=== PATIENT | male | born 1960 | race Caucasian/White ===

== ENCOUNTER → 2019-04-28 09:59 | Outpatient (BNVA) | payer MEDICARE, MEDICAID, SELFPAY | PROVIDERS: Family Provider Family Medicine; PCP Family Medicine; Visit Provider Family Medicine | DX: I10 Essential (primary) hypertension (principal); E11.9 Type 2 diabetes mellitus without complications; Z79.4 Long term (current) use of insulin; R39.9 Unspecified symptoms and signs involving the genitourinary system; B35.4 Tinea corporis | CPT/HCPCS: 80053; 80061; 81003; 82044; 83036; 85025; 87077; 87086; 87186 ==

== ENCOUNTER → 2019-05-04 11:09 | Outpatient (BNVA) | payer MEDICARE, MEDICAID, SELFPAY | PROVIDERS: Family Provider Family Medicine; PCP Family Medicine; Visit Provider Family Medicine | DX: N28.9 Disorder of kidney and ureter, unspecified (principal) | CPT/HCPCS: 82043 ==

== ENCOUNTER 2019-05-29 14:38 | Outpatient (CLI) | payer MEDICARE, MEDICAID, SELFPAY ==
--- NOTE | 2019-05-29 15:00 | US_ITS ---
WS: [id number] RENAL ULTRASOUND HISTORY: elevated 24hr urine COMPARISON: None available. TECHNIQUE: 2-D and color Doppler imaging of the kidney submitted. Right kidney: 11.5 cm x 6.4 cm x 5.9 cm. Normal echogenicity with no hydronephrosis or mass. Left kidney: 10.8 cm x 5.3 cm x 5.3 cm. Normal echogenicity with no hydronephrosis or mass. Aorta: Poorly visualized. Urinary Bladder: Normal distention. US/US renal BI* [id number] IMPRESSION: Normal renal ultrasound.
== END 2019-05-29 14:39 | disposition home or self-care (01) ==
LOC: RADWPI 14:43
PROVIDERS: Family Provider Family Medicine; PCP Family Medicine; Visit Provider Family Medicine
DX: R80.9 Proteinuria, unspecified (principal)
CPT/HCPCS: 76770

== ENCOUNTER → 2019-11-29 12:40 | Outpatient (BNVA) | payer OTHER, MEDICARE, MEDICAID, SELFPAY | PROVIDERS: Family Provider Family Medicine; PCP Family Medicine; Visit Provider Specialist | DX: R56.9 Unspecified convulsions (principal); R25.9 Unspecified abnormal involuntary movements | CPT/HCPCS: 95816 ==

== ENCOUNTER 2020-01-09 20:00 | Outpatient (CLI) | payer OTHER, MEDICARE, MEDICAID, SELFPAY | END 2020-01-09 20:01 | disposition home or self-care (01) | LOC: SLEEP 01-10 09:57 | PROVIDERS: Family Provider Family Medicine; PCP Family Medicine; Visit Provider Psychiatry & Neurology Psychiatry | DX: G47.33 Obstructive sleep apnea (adult) (pediatric) (principal) | CPT/HCPCS: 95811 ==

== ENCOUNTER → 2020-01-23 14:33 | Outpatient (BNVA) | payer MEDICARE, MEDICAID, SELFPAY | PROVIDERS: Family Provider Family Medicine; PCP Family Medicine; Visit Provider Family Medicine | DX: E11.9 Type 2 diabetes mellitus without complications (principal); Z79.4 Long term (current) use of insulin | CPT/HCPCS: 80053; 83036 ==

== ENCOUNTER → 2020-08-27 09:42 | Outpatient (BNVA) | payer MEDICARE, SELFPAY | PROVIDERS: Family Provider Family Medicine; PCP Family Medicine; Visit Provider Family Medicine | DX: E11.9 Type 2 diabetes mellitus without complications (principal); Z79.4 Long term (current) use of insulin; I10 Essential (primary) hypertension; E78.5 Hyperlipidemia, unspecified; F17.229 Nicotine dependence, chewing tobacco, with unspecified nicotine-induced disorders | CPT/HCPCS: 80053; 80061; 83036 ==

== ENCOUNTER → 2021-02-25 09:57 | Outpatient (BNVA) | payer MEDICARE, SELFPAY | PROVIDERS: Family Provider Family Medicine; PCP Family Medicine; Visit Provider Family Medicine | DX: R35.1 Nocturia (principal); E11.9 Type 2 diabetes mellitus without complications; Z79.4 Long term (current) use of insulin | CPT/HCPCS: 80053; 83036; 84153 ==

== ENCOUNTER 2022-04-10 11:45 | Emergency (ER) | payer OTHER, SELFPAY ==
[2022-04-10 11:48] VITALS: BP 141/91; PULSE 110; RESP 20; TEMP 35.9; O2SAT 91; BMI 39.0
--- NOTE | 2022-04-10 11:53 | ED_ITS ---
HPI - General Adult General: Chief complaint: General Medical Stated complaint: poss stroke symptoms Time Seen by Provider: 04/10/22 11:48 History of Present Illness: 61-year-old gentleman with history of hypertension, hyperlipidemia, seizures, diabetes presenting to the emergency dep artment for strokelike symptoms. He reports onset of symptoms approximately 5 days ago when he noticed left-sided facial droop and eye tearing as well as difficulty speaking and drinking. Since onset symptoms have persisted. Denies similar episodes in the past. No other neurologic symptoms that he has noticed. Does endorse a headache which is atypical for him frontal and aching/throbbing in nature. No other specific changes in health, exacerbating, or alleviating factors identified. Onset (ago): day(s) Location: face Severity: severe Pain Consistency: constant Relieving factors: none Exacerbating factors: none Associated symptoms: Reports headache(s) Review of Systems General: Reports: 10 or more systems reviewed and unremarkable except in HPI and below Neuro: Reports: headache(s) PFSH ED PFSH: Medical History Allergic rhinitis Anxiety Dyslipidemia Essential hypertension Major depression PTSD (post-traumatic stress disorder) Type 2 diabetes mellitus without complication, with long-term current use of insulin Surgical History No pertinent past surgical history Family History Other CAD (coronary artery disease) Cancer Diabetes Social History Smoking and tobacco status: never smoked (smokeless tobacco usage) Quit status (tobacco): not considering quitting Alcohol intake: former Physical Exam Const: COMMON NORMALS: alert GENERAL APPEARANCE: cooperative and well developed HENMT: COMMON NORMALS: normocephalic, atraumatic, external ears normal, EAC's normal, TM's normal bilaterally and oropharynx normal HEAD & SCALP: normocephalic and atraumatic EXTERNAL EAR: Yes external ears normal EXTERNAL AUDITORY CANAL: EAC's normal TYMPANIC MEMBRANE: TM's normal bilaterally THROAT: posterior oropharynx normal Eye: COMMON NORMALS: conjunctivae normal CONJUNCTIVA: Yes conjunctivae normal SCLERA: sclerae normal Neck/C-Spine: COMMON NORMALS: supple GENERAL: Yes trachea midline Resp: COMMON NORMALS: normal respiratory effort EFFORT & INSPECTION: Yes able to speak in complete sentences Cardio: COMMON NORMALS: regular rate and regular rhythm RATE: regular rate RHYTHM: regular rhythm GI: COMMON NORMALS: Soft to palpation PALPATION: Yes Soft to palpation and No Tenderness to palpation present (GI) PERCUSSION: normal to percussion Extremity: GENERAL: Yes normal exam except as noted and No edema Neuro: COMMON NORMALS: moves all extremities SENSORIUM/ORIENTATION: Yes alert and No Orientation impaired OTHER: Left-sided facial droop and incomplete closure of the inferior left eyelid. There is tearing, forehead is involved however there is some movement. Psych: COMMON NORMALS: mental status grossly normal and Normal thought process present THOUGHT PROCESS: Normal thought process present Skin: NARRATIVE SKIN EXAM: No vesicular lesions Course Vital Signs: Vital signs: Vital Signs Temperature 96.6 F L 04/10/22 11:48 Pulse Rate 89 04/10/22 14:02 Respiratory Rate 14 04/10/22 12:40 Blood Pressure 115/80 04/10/22 14:02 Pulse Oximetry 95 04/10/22 14:02 Oxygen Delivery Me thod 04/10/22 13:00 [facility] - General Adult Medical Decision Making 61-year-old gentleman presenting for droop without other neurologic symptoms. Onset of symptoms 5 days ago and patient is well outside any tPA window. Exam with forehead involved left-sided facial droop with tearing. Exam however is not 100% typical of Degroot's palsy. No skin lesions. Given age and exam further assessment is appropriate. Labs with minimal leukocytosis, no significant metabolic abnormalities. CT without acute evidence of stroke. Patient given medication for headache which resolved headache. 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 Plan to treat with steroids and eyedrops. The results of ED evaluation were discussed with the patient including prescriptions and/or symptomatic cares (if applicable) including appropriate and responsible use, followup plan, and return precautions. The patient verbalized understanding and felt safe for discharge. Medical Records I reviewed the patient's medical records. Lab Data I reviewed the patient's lab results. 04/10/22 12:00 04/10/22 12:[address] 04/10/22 12:18 IMPRESSION: 1. No acute intracranial hemorrhage or edema. 2. Remote lacunar infarct anterior limb RIGHT internal capsule. Laboratory Results WBC 11.4 10^3/uL (4.0-10.0) H 04/10/22 12:00 RBC 5.07 10^6/uL (4.1-5.3) 04/10/22 12:00 Hgb 15.0 g/dL (11.7-16.6) 04/10/22 12:00 Hct 44.6 % (42.0-52.0) 04/10/22 12:00 MCV 88.0 fl (80-94) 04/10/22 12:00 MCH 29.6 pg (28.0-34.0) 04/10/22 12:00 MCHC 33.6 g/dL (30.0-36.0) 04/10/22 12:00 RDW 13.0 % (12.1-15.1) 04/10/22 12:00 Plt Count 425 10^3/cmm (130-400) H 04/10/22 12:00 MPV 9.4 fL (7.4-10.4) 04/10/22 12:00 Neut % (Auto) 58.9 % 04/10/22 12:00 Lymph % (Auto) 32.3 % 04/10/22 12:00 Crockett % (Auto) 4.6 % 04/10/22 12:00 Eos % (Auto) 2.4 % 04/10/22 12:00 Baso % (Auto) 1.2 % 04/10/22 12:00 Neut # (Auto) 6.70 10^3/uL (1.8-7.7) 04/10/22 12:00 Lymph # (Auto) 3.7 10^3/uL (0.8-4.8) 04/10/22 12:00 [place]ckett # (Auto) 0.5 10^3/uL (0.2-0.9) 04/10/22 12:00 Eos # (Auto) 0.3 10^3/uL (0.0-0.8) 04/10/22 12:00 Baso # (Auto) 0.1 10^3/uL (0.0-0.1) 04/10/22 12:00 Nucleated RBC % (auto) 0 % 04/10/22 12:00 Nucleated RBCs # 0.0 /100WBC 04/10/22 12:00 Sodium 136 mmol/L (136-145) 04/10/22 12:00 Potassium 3.8 mmol/L (3.5-5.1) 04/10/22 12:00 Chloride 98 mmol/L (98-107) 04/10/22 12:00 Carbon Dioxide 26 mmol/L (22-29) 04/10/22 12:00 Anion Gap 15.8 (5-19) 04/10/22 12:00 BUN 15 mg/dL (6-20) 04/10/22 12:00 Creatinine 0.9 mg/dL (0.7-1.2) 04/10/22 12:00 GFR Calculation 86.4 mL/min (90-130) L 04/10/22 12:00 Glucose 268 mg/dL (65-115) H 04/10/22 12:00 Calculated Osmolality 292 mOsm/kg (285-295) 04/10/22 12:00 Calcium 9.6 mg/dL (8.5-10.5) 04/10/22 12:00 Total Bilirubin 0.4 mg/dL (0.15-1.2) 04/10/22 12:00 AST 20 U/L (0-40) 04/10/22 12:00 ALT 38 U/L (0-41) 04/10/22 12:00 Alkaline Phosphatase 212 U/L (40-130) H 04/10/22 12:00 Troponin T Baseline 15 ng/L (0-15) 04/10/22 12:00 Total Protein 6.5 g/dL (6.6-8.7) L 04/10/22 12:00 Albumin 4.3 g/dL (3.5-5.2) 04/10/22 12:00 Globulin 2.2 g/dL (1.3-4.6) 04/10/22 12:00 TSH 3.17 uIU/mL (0.27-4.20) 04/10/22 12:00 Discharge Plan Discharge Patient Disposition: Home Clinical Impression: Facial paralysis/[place] palsy Condition: Stable Prescriptions: New Artificial Tears([id number]) Drops 1 drp ophthalmic (eye) Q60M Qty: 30 0RF No Action metformin 1,000 mg tablet extended release 24hr 1,000 mg PO BID fluticasone propionate [Flonase Allergy Relief] 50 mcg/actuation spray,suspension 2 spray INTRANASAL DAILY PRN (Reason: Allergy Symptoms) bupropion HCl [Wellbutrin XL] 300 mg tablet extended release 24 hr 300 mg PO QAM atorvastatin 40 mg tablet 40 mg PO QPM gabapentin 300 mg capsule See Rx Instructions .ROUTE .COMPLEX Rx Instructions: 300 mg orally in the AM and 600 mg in the PM diltiazem HCl 180 mg capsule,extended release 24hr 180 mg PO DAILY topiramate [Topamax] 25 mg tablet 75 mg PO QPM glipizide 10 mg tablet 10 mg PO BID venlafaxine 150 mg capsule,extended release 24hr 150 mg PO QAM ropinirole 0.5 mg tablet 0.5 mg PO DAILY calcium polycarbophil 625 mg tablet 1,250 mg PO DAILY multivitamin Tablet 1 tab PO DAILY lisinopril 5 mg tablet 5 mg PO DAILY Qty: 30 3RF Ozempic 1 mg/dose (4 mg/3 mL) pen injector See Rx Instructions .ROUTE .COMPLEX Qty: 18 0RF Dose Instruction: INJECT 1 MG SUBCUTANEOUSLY ONCE A WEEK Rx Instructions: INJECT 1 MG SUBCUTANEOUSLY ONCE A WEEK Aspir-81 81 mg Tablet,Delayed Release (Dr/Ec) 81 mg PO DAILY Vitamin D3 50 mcg (2,000 unit) Capsule 50 mcg PO DAILY Fish Oil 1,000 mg (120 mg-180 mg) Capsule 2 cap PO BID tamsulosin 0.4 mg capsule 0.4 mg PO QPM Cinnamon 500 mg Capsule 500 mg PO DAILY Discharge Orders: Discharge ED (Routine); Ordered 04/10/22 Ordered By: Mac Gallagher Referrals: Katerina Quach DO [Primary Care Provider] - Discharge Diet: Usual diet Discharge Activity: Increase activity as tolerated Patient Instructions: Degroot Palsy (ED), Acute Headache (ED) Activity Restrictions/Additional Instructions: Thank you for visiting the emergency department. You were seen and evaluated for neurologic symptoms. The most likely cause of your symptoms is Degroot's palsy. I will treat this with steroids. I will also prescribe eyedrops. Use these hourly while awake and before sleep. You should use gentle tape to keep your eyelid closed during sleep. I will message case management for follow-up with neurology as well as ophthalmology. Please ensure that you continue your medication regimen. Return to the emergency department for any new neurologic symptoms, or anything else that you are concerned about and feel needs emergency department evaluation. Coding Level of Care Code ED Educational [employer] Curator for Denny Mishra
--- NOTE | 2022-04-10 12:18 | CT_ITS ---
WS: [id number] CT HEAD NONCONTRAST HISTORY: facial droop, 5 days, stroke like symptoms TECHNIQUE: Contiguous axial imaging performed through the brain in 2.5 mm imaging. Bone and soft tiss ue windows. Sagittal and coronal reformats reviewed. All CT scans at [facility] use at least one of these dose optimization techniques: automated exposure control; mA and/or kV adjustment per pa tient size (includes targeted exams where dose is matched to clinical indication); or iterative recon struction. DLP: 1121.78 mGy.cm COMPARISON: None available. No acute intracranial hemorrhage, midline shift or mass effect. Very mild atrophy and small vessel ischemic disease. Prior lacunar infarct anterior limb RIGHT civil engineering intern al capsule. Ventricles: Normal size with no hydrocephalus. No inferior displacement of cerebellar tonsils. Paranasal sinuses: As visualized are clear. Mastoid air cells: Well pneumatized. Calvarium and scalp: Skull is intact with no soft tissue edema or swelling. CT/CT head wo con* [id number] IMPRESSION: 1. No acute intracranial hemorrhage or edema. 2. Remote lacunar infarct anterior limb RIGHT internal capsule.
--- NOTE | 2022-04-10 12:19 | ECG_ITS ---
[facility] Test Date: 2022-04-10 Pat Name: Asim Norwood Department: Room: Gender: Male [employer] Server: : 1960 Requested By: Mac Gallagher Order Number: [id number] Alvin MD: Sarah Cantu M.D. Measurements Intervals [place] Rate: 100 P: 23 ID: [id number] QRS: 29 QRSD: 97 T: 50 QT: 333 QTc: 431 Interpretive Statements SINUS TACHYCARDIA ABNORMAL RHYTHM ECG No previous ECG available for comparison Electronically Signed On 04-10-2022 16:45:02 TOP AND TRIM WORKER by Sarah Cantu M.D. [id number]
[2022-04-10 12:27] LABS: Basophils # 0.1 10^3/uL (0.0-0.1); Basophils % 1.2 %; Eosinophils # 0.3 10^3/uL (0.0-0.8); Eosinophils % 2.4 %; Hematocrit 44.6 % (42.0-52.0); Lymphocytes # 3.7 10^3/uL (0.8-4.8); Lymphocytes % 32.3 %; Mean Corpuscular HGB Conc 33.6 g/dL (30.0-36.0); Mean Corpuscular Hemoglobin 29.6 pg (28.0-34.0); Mean Platelet Volume 9.4 fL (7.4-10.4); Monocytes # 0.5 10^3/uL (0.2-0.9); Monocytes % 4.6 %; Neutrophils % 58.9 %; Nucleated Red Blood Cells % 0 %; Platelet Count 425 10^3/cmm (130-400); Red Blood Count 5.07 10^6/uL (4.1-5.3); White Blood Count 11.4 10^3/uL (4.0-10.0)
[2022-04-10] MEDS: metoclopramide 5 mg/mL SDV 2 mL 10 MG IVP (12:29)
[2022-04-10] MEDS: ketorolac 30 mg/mL INJ 15 MG IVP (12:29)
[2022-04-10] MEDS: diphenhydrAMINE 50 mg/mL SDV 1mL 12.5 MG IVP (12:29)
[2022-04-10] MEDS: sodium chloride 0.9% 1,000 ML 999 ML IV (12:30)
[2022-04-10 12:40] VITALS: BP 141/91; PULSE 92; RESP 14; O2SAT 94
[2022-04-10 12:40] LABS: Troponin(5th) Baseline 15 ng/L (0-15)
[2022-04-10 12:47] LABS: Alanine Aminotransferase 38 U/L (0-41); Albumin Level 4.3 g/dL (3.5-5.2); Alkaline Phosphatase 212 U/L (40-130); Anion Gap 15.8 (5-19); Aspartate Amino Transferase 20 U/L (0-40); Blood Urea Nitrogen 15 mg/dL (6-20); Calcium 9.6 mg/dL (8.5-10.5); Carbon Dioxide 26 mmol/L (22-29); Chloride 98 mmol/L (98-107); Globulin 2.2 g/dL (1.3-4.6); Glomerular Filtration Rate 86.4 mL/min (90-130); Glucose 268 mg/dL (65-115); Osmolality Calculated 292 mOsm/kg (285-295); Potassium 3.8 mmol/L (3.5-5.1); Sodium 136 mmol/L (136-145); Thyroid Stimulating Hormone 3.17 uIU/mL (0.27-4.20); Total Bilirubin 0.4 mg/dL (0.15-1.2); Total Protein 6.5 g/dL (6.6-8.7)
[2022-04-10 13:00] VITALS: BP 114/74; PULSE 90; O2SAT 94
[2022-04-10 14:02] VITALS: BP 115/80; PULSE 89; O2SAT 95
--- NOTE | 2022-04-13 15:08 | DCPLANNER ---
Addendum entered by Lesli Nichole 04/30/22 08:51: Dr. Glover office will contact patient to schedule an appointment. Addendum entered by Lesli Nichole 04/30/22 08:47: Patient had a follow up appointment scheduled with neurology - patient did attend appointment. Original Note: business banking relationship manager had message to schedule a follow up appointment for patient with neurology. business banking relationship manager sent patients information to the front office staff at neurology. Patients information will be printed and reviewed. Clinic will call patient with appointment information. business banking relationship manager also had message to refer patient to ophthalmology - business case analyst faxed patients information to the office of Dr. Glover. Patients information will be reviewed. Clinic will call patient with appointment information.
== END 2022-04-10 14:07 | disposition home or self-care (01) ==
PROVIDERS: Emergency Provider Emergency Medicine; PCP Family Medicine
DX: G51.0 Bell's palsy (principal); Z79.82 Long term (current) use of aspirin; Z79.84 Long term (current) use of oral hypoglycemic drugs; E78.5 Hyperlipidemia, unspecified; I10 Essential (primary) hypertension; E11.9 Type 2 diabetes mellitus without complications; F17.220 Nicotine dependence, chewing tobacco, uncomplicated
CPT/HCPCS: 70450; 80053; 84443; 84484; 85025; 93005; 96365; 96375; 99285; J1200; J1885; J2765; J3475; J7030

== ENCOUNTER 2022-04-21 06:00 | Outpatient (CLI) | payer MEDICARE, MEDICAID, SELFPAY ==
--- NOTE | 2022-05-18 13:45 | MR_ITS ---
WS: [id number] MRI HEAD WITHOUT CONTRAST TECHNIQUE: Sagittal T1, T2 axial, T2 axial FLAIR, axial and coronal T1 images, axial susceptibility w eighted imaging, axial diffusion weighted images, and coronal T2 images were obtained. CLINICAL INFORMATION: R56.9 - Unspecified convulsions COMPARISON: CT April 10, 2022 FINDINGS: No evidence of restricted diffusion to suggest acute ischemia. Ventricular system and basal cisterns are patent. Tiny chronic lacunar infarct versus prominent perivascular space RIGHT caudate/internal c apsule as seen on the CT. Normal posterior fossa. Normal vascular flow voids at the skull base. No ex tra-axial fluid collections. No evidence of mass or mass effect. Normal posterior nasopharynx. Normal parapharyngeal fat. Mild mucosal thickening in the paranasal sin uses. No hemosiderin on susceptibly weighted images. Normal optic chiasm and pituitary infundibulum. Temporal lobes and hippocampal formations are normal in appearance. No other suspicious findings.
== END 2022-04-21 15:00 | disposition home or self-care (01) ==
LOC: NSACUTE 05-06 12:58
PROVIDERS: PCP Family Medicine; Visit Provider Specialist
DX: F32.A Depression, unspecified (principal); I10 Essential (primary) hypertension; Z86.73 Personal history of transient ischemic attack (TIA), and cerebral infarction without residual deficits
CPT/HCPCS: 99205

== ENCOUNTER 2022-05-14 08:58 | Outpatient (CLI) | payer OTHER, SELFPAY ==
--- NOTE | 2022-05-14 09:15 | USCV_ITS ---
Asim Norwood Age: 62 Gender: M : 1960 Exam Date: 05/14/2022 09:21 Ordering Phys: Wendi Guthrie MD Technologist: Prashant Ulloa Exam Location: [facility] [place] Indication: palpitations BP: 118 / 75 HR: 98 Rhythm: Sinus Technical Quality: Adequate MEASUREMENTS (Male / Female) Normal Values 2D ECHO LV Diastolic Diameter PLAX 3.9 cm 4.2 - 5.9 / 3.9 - 5.3 cm LV Systolic Diameter PLAX 2.7 cm IVS Diastolic Thickness 1.0 cm 0.6 - 1.0 / 0.6 - 0.9 cm IVS Systolic Thickness 1.1 cm LVPW Diastolic Thickness 1.3 cm 0.6 - 1.0 / 0.6 - 0.9 cm LVPW Systolic Thickness 1.6 cm LVOT Diameter 2.0 cm LV Ejection Fraction 2D Teich 59.1 % LV Ejection Fraction MOD 2C 62.2 % LV Ejection Fraction 2C AL 62.1 % LA Diameter 3.5 cm LA Width 2.9 cm LA Height 4.5 cm RA Width 3.1 cm RA Height 3.9 cm Aorta at Sinotubular Diameter 2.5 cm IVC Diameter 1.4 cm M-MODE Aortic Annulus Diameter 3.2 cm LA Ao Ratio MM 1.1 MV E Point Septal Separation 0.7 cm DOPPLER AV Peak Velocity 122.3 cm/s LVOT Peak Velocity 122.0 cm/s AV Area Cont Eq vti 3.0 cm squared AV Area Cont Eq pk 3.2 cm squared MV Peak Velocity 109.0 cm/s MV Area PHT 6.5 cm squared Mitral E to A Ratio 0.7 MV E' Velocity 38.6 cm/s Mitral E to MV E' Ratio 7.8 Mitral E to LV E' Lateral Ratio 7.2 Mitral E to LV E' Septal Ratio 8.5 Right Atrial Pressure 3.0 mmHg PV Peak Velocity 99.8 cm/s RV Acceleration Time 0.1 s RV Ejection Time 0.3 s RV AcT/ET 0.4 FINDINGS Left Ventricle Normal left ventricular size and systolic function, EF 62 %. Mild left ventricular hypertrophy. No regional wall motion abnormalities. Grade I/IV diastolic dysfunction (abnormal relaxation filling pattern), normal to mildly elevated filling pressures. Right Ventricle Normal right ventricular size and systolic function. Right Atrium The right atrium is normal in size. Left Atrium The left atrium is normal in size. Mitral Valve Trace mitral valve regurgitation. Aortic Valve No gross abnormalities noted Tricuspid Valve No gross abnormalities noted Pulmonic Valve No gross abnormalities noted Pericardium Normal pericardium without effusion. Aorta Normal aortic annulus size. IVC Normal inferior vena cava. CONCLUSIONS Normal left ventricular size and systolic function, EF 62 %. Mild left ventricular hypertrophy. No regional wall motion abnormalities. Grade I/IV diastolic dysfunction (abnormal relaxation filling pattern), normal to mildly elevated filling pressures. Trace mitral valve regurgitation. Normal cardiac chamber sizes. There is no pericardial effusion. There are no intracardiac masses. No similar previous studies are available for comparison Dr Marie Bell MD FACC (Electronically Signed) Final Date: 17 May 2022 17:18 S
== END 2022-05-14 08:59 | disposition home or self-care (01) ==
PROVIDERS: PCP Emergency Medicine Emergency Medical Services; Visit Provider Specialist
DX: R00.2 Palpitations (principal); R07.89 Other chest pain; I34.0 Nonrheumatic mitral (valve) insufficiency
CPT/HCPCS: 93306

== ENCOUNTER → 2022-05-15 10:13 | Outpatient (BNVA) | payer MEDICARE, SELFPAY | PROVIDERS: PCP Emergency Medicine Emergency Medical Services; Visit Provider Family Medicine | DX: E11.9 Type 2 diabetes mellitus without complications (principal); Z79.4 Long term (current) use of insulin; E78.5 Hyperlipidemia, unspecified; R35.1 Nocturia | CPT/HCPCS: 80061; 82043; 83036; 84153 ==

== ENCOUNTER 2022-05-18 13:27 | Outpatient (CLI) | payer OTHER, SELFPAY ==
--- NOTE | 2022-05-18 08:07 | MR_ITS ---
WS: [id number] MRI HEAD WITHOUT CONTRAST TECHNIQUE: Sagittal T1, T2 axial, T2 axial FLAIR, axial and coronal T1 images, axial susceptibility w eighted imaging, axial diffusion weighted images, and coronal T2 images were obtained. CLINICAL INFORMATION: R56.9 - Unspecified convulsions COMPARISON: CT April 10, 2022 FINDINGS: No evidence of restricted diffusion to suggest acute ischemia. Ventricular system and basal cisterns are patent. Tiny chronic lacunar infarct versus prominent perivascular space RIGHT caudate/internal c apsule as seen on the CT. Normal posterior fossa. Normal vascular flow voids at the skull base. No ex tra-axial fluid collections. No evidence of mass or mass effect. Normal posterior nasopharynx. Normal parapharyngeal fat. Mild mucosal thickening in the paranasal sin uses. No hemosiderin on susceptibly weighted images. Normal optic chiasm and pituitary infundibulum. Temporal lobes and hippocampal formations are normal in appearance. No other suspicious findings. MR/MR head wo con* [id number] IMPRESSION: 1. No evidence of restricted diffusion to suggest acute ischemia. 2. Minimal small vessel changes. Mild parenchymal volume loss. 3. Tiny chronic lacunar infarct or prominent perivascular space RIGHT caudate/ internal capsule 4. No hemosiderin on susceptibly weighted images. 5. No other suspicious findings.
== END 2022-05-18 13:28 | disposition home or self-care (01) ==
PROVIDERS: PCP Emergency Medicine Emergency Medical Services; Visit Provider Physician Assistant
DX: R56.9 Unspecified convulsions (principal)
CPT/HCPCS: 70551

== ENCOUNTER → 2022-06-22 08:40 | Outpatient (BNVA) | payer MEDICARE, MEDICAID, SELFPAY | PROVIDERS: PCP Family Medicine; Visit Provider Specialist | DX: I10 Essential (primary) hypertension (principal); Z86.73 Personal history of transient ischemic attack (TIA), and cerebral infarction without residual deficits; E11.9 Type 2 diabetes mellitus without complications; Z79.4 Long term (current) use of insulin; Z79.84 Long term (current) use of oral hypoglycemic drugs; F17.220 Nicotine dependence, chewing tobacco, uncomplicated | CPT/HCPCS: 99214 ==

== ENCOUNTER 2022-07-02 14:29 | Outpatient (CLI) | payer OTHER, SELFPAY ==
--- NOTE | 2022-07-02 14:39 | USCV_ITS ---
Asim Norwood Age: 62 Gender: M : 1960 Exam Date: 07/02/2022 15:05 Ordering Phys: Muinr Sotomayor DO Technologist: Prashant Ulloa Exam Location: [facility] [place] Indication: mild stroke Risk Factors: Previous Vascular Surgery: Right Brachial BP: / Left Brachial BP: / Right Left Velocity (cm/s) Spectral Plaque Velocity (cm/s) Spectral Plaque Syst/Diast Broadening Syst/Diast Broadening 108.10/14.30 Prox CCA 113.60/ 16.40 91.50/ 23.20 Mid CCA 87.10 / 22.10 43.40/ 11.20 Distal CCA 73.90 / 11.00 86.00/ 16.50 Prox ICA 105.80/ 24.30 66.40/ 25.00 Mid ICA 50.60 / 17.10 51.90/ 14.50 Distal ICA 58.50 / 19.70 121.30 ECA 94.80 0.73 ICA/CCA 0.58 Antegrade Vertebral Antegrade 41.40/ 12.50 cm/s 46.70/ 12.50 cm/s Tri Subclavian Tri 91.40 68.40 CONCLUSIONS Right ICA stenosis <50%. Left ICA stenosis <50%. Normal antegrade Doppler flow noted in the right vertebral artery. Normal antegrade Doppler flow noted in the left vertebral artery. Paulo Finn MD (Electronically Signed) Final Date: 02 Jul 2022 17:12 S
== END 2022-07-02 14:30 | disposition home or self-care (01) ==
LOC: RAD 14:35
PROVIDERS: PCP Family Medicine; Visit Provider Emergency Medicine Emergency Medical Services
DX: Z01.89 Encounter for other specified special examinations (principal); Z86.73 Personal history of transient ischemic attack (TIA), and cerebral infarction without residual deficits
CPT/HCPCS: 93880

== ENCOUNTER → 2022-09-01 09:43 | Outpatient (BNVA) | payer MEDICARE, SELFPAY | PROVIDERS: PCP Family Medicine; Visit Provider Family Medicine | DX: E11.9 Type 2 diabetes mellitus without complications (principal); Z79.4 Long term (current) use of insulin | CPT/HCPCS: 80053; 83036 ==

== ENCOUNTER → 2022-12-01 09:25 | Outpatient (BNVA) | payer MEDICARE, SELFPAY | PROVIDERS: PCP Family Medicine; Visit Provider Family Medicine | DX: E11.9 Type 2 diabetes mellitus without complications (principal); Z79.4 Long term (current) use of insulin; I10 Essential (primary) hypertension; E78.5 Hyperlipidemia, unspecified | CPT/HCPCS: 80053; 83036 ==

== ENCOUNTER → 2023-05-31 08:51 | Outpatient (BNVA) | payer BC, SELFPAY | PROVIDERS: PCP Family Medicine; Visit Provider Family Medicine | DX: E11.9 Type 2 diabetes mellitus without complications (principal); Z79.4 Long term (current) use of insulin | CPT/HCPCS: 80053; 80061; 82043; 83036; 85025 ==

== ENCOUNTER 2023-08-24 14:09 | Outpatient (CLI) | payer OTHER, SELFPAY ==
--- NOTE | 2023-08-24 14:13 | CTR_ITS ---
PROCEDURE INFORMATION: Exam: CT Chest Without Contrast; Diagnostic Exam date and time: 08/24/2023 2:26 PM Age: 63 years old Clinical indication: Cough; Additional info: Cough/abnormal cxr TECHNIQUE: Imaging protocol: Diagnostic computed tomography of the chest without contrast. Radiation optimization: All CT scans at this facility use at least one of these dose optimization techniques: automated exposure control; mA and/or kV adjustment per patient size (includes targeted exams where dose is matched to clinical indication); or iterative reconstruction. COMPARISON: No relevant prior studies available. RADIATION DOSE METRICS: Total DLP (mGy-cm): 591.86 FINDINGS: Thyroid: The thyroid gland is normal. Trachea: The airways are patent. Lungs: 3.7 x 2.7 x 3.6 cm masslike spiculated consolidation with central cavitation and surrounding architectural distortion in the left upper lobe, abutting directly on the pleura. Remainder of the lungs are clear. Pleural spaces: No pleural effusions or pneumothorax. Heart: Heart is of normal size and morphology. No pericardial thickening or effusion. Coronary arteries: There is mild atherosclerotic calcification of the coronary arteries. Mediastinal space: The mediastinal contour is normal. Lymph nodes: No concerning adenopathy. Vasculature: The aorta is normal in course and caliber. The pulmonary arteries are normal in course and caliber. Adrenal glands: 10 mm fat density left adrenal nodule, compatible with a benign adenoma.No follow-up is necessary. (Reference: Rashid) Stomach: The visualized intra-abdominal structures demonstrate no acute findings. Bones/joints: No acute skeletal abnormality or aggressive osseous lesion. Soft tissues: No acute body wall soft tissue findings. CT/CT chest [facility] [id number] IMPRESSION: 3.7 x 2.7 x 3.6 cm masslike spiculated consolidation with central cavitation and surrounding architectural distortion in the left upper lobe, abutting directly on the pleura. Differential diagnosis would include: Cavitary primary bronchogenic carcinoma versus a cavitary infectious/inflammatory consolidation, in which post primary TB would be in the differential diagnosis. REFERENCES: Rashid BLOOD, et al. Management of Incidental Adrenal Masses: A White Paper of the ACR Incidental Findings Committee. J Am Clyde Radiol. 2017;14(8):1211-0922.
== END 2023-08-24 14:10 | disposition home or self-care (01) ==
LOC: RAD 14:10
PROVIDERS: PCP Family Medicine; Visit Provider Nurse Practitioner Family
DX: R91.8 Other nonspecific abnormal finding of lung field (principal)
CPT/HCPCS: 71250

== ENCOUNTER 2023-09-07 07:55 | Outpatient (CLI) | payer OTHER, SELFPAY ==
--- NOTE | 2023-09-07 08:00 | PETR_ITS ---
PROCEDURE INFORMATION: Exam: PET/CT Skull Base to Mid-thigh Exam date and time: 09/07/2023 8:23 AM Age: 63 years old Clinical indication: Abnormal findings; Mass like spiculated consolidation; Additional info: Abnormal lung findings LABS AND CLINICAL REPORTS: Glucose: 160 mg/dl Treatment strategy for malignancy (PET staging): Initial Staging (PI) TECHNIQUE: Imaging protocol: Following at least four-hour fasting and following the injection of radiopharmaceutical, low dose CT images were obtained. Then, PET images were obtained. Attenuation corrected images were constructed using the CT scan. Fused images of PET and CT were reviewed. The standardized uptake values (SUV) reported below are maximum values within a region of interest, expressed in gm/ml. Exam includes orbital meatal line to mid-thigh. Radiopharmaceutical: 13.94 mCi F-18 FDG (Fluorodeoxyglucose), IV. Time of imaging post radiopharmaceutical administration: 1 hour Injection site: right AC COMPARISON: CT chest wo con [id number] 08/24/2023 2:26 PM FINDINGS: Brain: Visualized brain has normal physiologic uptake. Pharynx: No abnormal uptake. Larynx: No abnormal uptake. Lungs, pleura and trachea: There is only low level uptake associated with the nodular area of consolidation in the left upper lobe with SUV max 2.3. The area of cavitation in this region is decreased in size. Heart: Normal physiologic uptake. Mediastinal space: No abnormal uptake. Liver: No abnormal uptake. Gallbladder and biliary ducts: No abnormal uptake. Pancreas: No abnormal uptake. Spleen: No abnormal uptake. Adrenal glands: No abnormal uptake. Kidneys and ureters: Normal physiologic uptake. Stomach and bowel: Duodenal diverticulum. Urinary bladder: Circumferential bladder wall thickening. Vasculature: No abnormal uptake. Lymph nodes: No abnormal uptake. No lymphadenopathy in the head, neck, chest, abdomen, pelvis, and extremities. Skeleton: No abnormal uptake in the visualized axial and appendicular skeleton. Soft tissues: Small to moderate fat containing umbilical hernia. PET/PET skull to thigh INIT [id number] IMPRESSION: 1. There is only low level uptake associated with the nodular area of consolidation in the left upper lobe with SUV max 2.3. The area of cavitation in this region is decreased in size. Findings favorite infection, but continued follow-up imaging to resolution is recommended. 2. Circumferential bladder wall thickening could be seen in the setting of cystitis.
== END 2023-09-07 07:56 | disposition home or self-care (01) ==
PROVIDERS: PCP Family Medicine Adult Medicine; Visit Provider Nurse Practitioner Family
DX: R91.8 Other nonspecific abnormal finding of lung field (principal); N32.89 Other specified disorders of bladder
CPT/HCPCS: 78815; A9552

== ENCOUNTER → 2023-11-22 14:19 | Outpatient (BNVA) | payer OTHER, SELFPAY | PROVIDERS: PCP Family Medicine Adult Medicine; Visit Provider Internal Medicine | DX: R07.9 Chest pain, unspecified (principal) | CPT/HCPCS: 93005; 99204 ==

== ENCOUNTER 2023-12-01 11:52 | Outpatient (CLI) | payer OTHER, SELFPAY ==
--- NOTE | 2023-12-01 12:15 | USCV_ITS ---
Asim Norwood Age: 63 Gender: M : 1960 Exam Date: 12/01/2023 12:06 Ordering Phys: Nicholas Sarmiento M.D ([email or web address]) Technologist: Exam Location: [facility] [place]ication: BP: 100 / 60 HR: 79 Rhythm: Sinus Technical Quality: Adequate MEASUREMENTS (Male / Female) Normal Values 2D ECHO LVOT Diameter 2.2 cm LV Ejection Fraction MOD 4C 61.2 % LV Ejection Fraction MOD 2C 67.8 % LV Ejection Fraction 2C AL 68.4 % LA Diameter 3.4 cm RA Systolic Volume 4C AL 42.2 ml RA Systolic Volume 4C MOD 41.2 ml LA Sys Volume AL 44.1 cm cubed LA Sys Volume Index AL 19.1 cm cubed/m squared Aorta at Sinotubular Diameter 2.5 cm IVC Diameter 1.9 cm M-MODE LA Ao Ratio MM 1.6 AV Cusp Separation MM 2.2 cm DOPPLER AV Peak Velocity 133.0 cm/s LVOT Peak Velocity 114.0 cm/s AV Area Cont Eq vti 4.1 cm squared AV Area Cont Eq pk 3.3 cm squared MV Area PHT 3.3 cm squared Mitral E to A Ratio 0.9 TR Peak Velocity 140.0 cm/s TR Peak Gradient 7.8 mmHg TV Peak E Velocity 69.0 cm/s Right Atrial Pressure 3.0 mmHg Pulmonary Artery Systolic Pressu 10.8 mmHg PV Peak Velocity 104.5 cm/s FINDINGS Left Ventricle Normal left ventricular cavity size. Normal left ventricular systolic function. No regional wall motion abnormalities. Left ventricular ejection fraction is estimated at 60 %. Grade I/IV diastolic dysfunction (abnormal relaxation filling pattern), normal to mildly elevated filling pressures. Right Ventricle The right ventricle is normal in size and function. Right Atrium The right atrium is normal in size. Left Atrium The left atrium is normal in size. Mitral Valve Structurally normal mitral valve. No mitral valve stenosis. Mild mitral valve regurgitation. Aortic Valve Structurally normal trileaflet aortic valve. Trace aortic valve regurgitation. Tricuspid Valve Structurally normal tricuspid valve without significant stenosis or regurgitation. Pulmonary artery systolic pressure is normal. Pulmonic Valve Structurally normal pulmonic valve without significant stenosis. There is no pulmonic regurgitation. Pericardium Normal pericardium without effusion. Aorta Normal ascending aorta dimension. IVC The inferior vena cava appears normal. CONCLUSIONS Normal left ventricular cavity size. Normal left ventricular systolic function. No regional wall motion abnormalities. Left ventricular ejection fraction is estimated at 60 %. Grade I/IV diastolic dysfunction (abnormal relaxation filling pattern), normal to mildly elevated filling pressures. Structurally normal mitral valve. No mitral valve stenosis. Mild mitral valve regurgitation. There is no pericardial effusion. Right atrial pressure is around 5 mm of mercury. Al Lanza MD (Electronically Signed) Final Date: 01 December 2023 13:31 S
== END 2023-12-01 11:53 | disposition home or self-care (01) ==
LOC: RAD 11:52
PROVIDERS: PCP Family Medicine Adult Medicine; Visit Provider Internal Medicine
DX: I34.0 Nonrheumatic mitral (valve) insufficiency (principal); R06.02 Shortness of breath
CPT/HCPCS: 93306

== ENCOUNTER 2023-12-09 07:45 | Outpatient (CLI) | payer OTHER, SELFPAY ==
--- NOTE | 2023-12-09 | ECG_ITS ---
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
[2023-12-09 07:54] VITALS: BMI 38.7
--- NOTE | 2023-12-09 08:02 | NMCV_ITS ---
NM eladio perf SPECT r/s* [id number] Asim Norwood Age: 63 Gender: M : 1960 Exam Date: 12/09/2023 08:52 Ordering Phys: Nicholas Sarmiento M.D ([email or web address]) Technologist: OCTAVIO Camarena Exam Location: [facility] Indications: CP STRESS TEST Please see separate stress test report in [facility] for full findings IMAGE PROTOCOL Rest/Stress 1 Lexiscan Day Radiopharmaceutical Dose (mCi) Administration Site Administered by Rest: Tc-99m 10.5 IV OCTAVIO Camarena Sestamibi Stress:Tc-99m 33 IV Lucina Adams, OCCUPATIONAL HEALTH AND SAFETY MANAGER Sestamibi Rest: 09-Dec-2023 60 Discovery 630 Stress: 09-Dec-2023 30 Discovery 630 0.4mg Lexiscan. Supine position only as patient was unable to lay prone. SPECT RESULTS Technical Quality: Good Raw Data Analysis: Normal Image Corrections: No attenuation or motion correction applied Summed Stress Score: 0 Summed Rest Score: 0 Summed Difference Score: 0 PERFUSION FINDINGS SPECT images demonstrate homogeneous tracer distribution throughout the myocardium. FUNCTIONAL RESULTS (calculated via Gated SPECT) Stress Image LV EF (%): 92 Stress EDV (mL):49 TID: 0.69 Stress ESV (mL):4 FUNCTIONAL FINDINGS: There is normal left ventricular systolic function. IMPRESSIONS Myocardial perfusion imaging is normal. EKG segment will be documented separately. Al Lanza MD (Electronically Signed) Final Date: 09 December 2023 21:29 S
[2023-12-09] MEDS: regadenoson 0.4 Mg/5 ml Syringe IVP (10:33)
[2023-12-09 10:53] VITALS: BP 134/71; PULSE 102
== END 2023-12-09 07:46 | disposition home or self-care (01) ==
PROVIDERS: PCP Family Medicine Adult Medicine; Visit Provider Internal Medicine
DX: R07.9 Chest pain, unspecified (principal); R06.02 Shortness of breath
CPT/HCPCS: 36415; 78452; 93017; 96374; A9500; J2785

== ENCOUNTER 2023-12-13 20:00 | Outpatient (CLI) | payer OTHER, SELFPAY | END 2023-12-13 20:01 | disposition home or self-care (01) | LOC: SLEEP 12-14 00:06 | PROVIDERS: PCP Family Medicine Adult Medicine; Visit Provider Nurse Practitioner Family | DX: G47.33 Obstructive sleep apnea (adult) (pediatric) (principal); G47.36 Sleep related hypoventilation in conditions classified elsewhere | CPT/HCPCS: 95810 ==

== ENCOUNTER → 2023-12-21 12:00 | Outpatient (BNVA) | payer OTHER, SELFPAY | PROVIDERS: PCP Family Medicine Adult Medicine; Referring Provider Nurse Practitioner Family; Visit Provider Dermatology | DX: D48.5 Neoplasm of uncertain behavior of skin (principal); B36.0 Pityriasis versicolor; L82.1 Other seborrheic keratosis; L91.8 Other hypertrophic disorders of the skin; Q82.5 Congenital non-neoplastic nevus; L28.0 Lichen simplex chronicus; L73.8 Other specified follicular disorders | CPT/HCPCS: 11102; 99204 ==

== ENCOUNTER → 2024-01-17 07:58 | Outpatient (BNVA) | payer OTHER, SELFPAY | PROVIDERS: PCP Family Medicine Adult Medicine; Visit Provider Dermatology | DX: D18.01 Hemangioma of skin and subcutaneous tissue (principal); R58 Hemorrhage, not elsewhere classified; R20.8 Other disturbances of skin sensation; D03.4 Melanoma in situ of scalp and neck | CPT/HCPCS: 11623; 13121; 99213 ==

== ENCOUNTER → 2024-01-25 14:02 | Outpatient (BNVA) | payer OTHER, SELFPAY | PROVIDERS: PCP Family Medicine Adult Medicine; Visit Provider Internal Medicine | DX: E11.9 Type 2 diabetes mellitus without complications (principal); Z79.4 Long term (current) use of insulin; R07.9 Chest pain, unspecified; I10 Essential (primary) hypertension; E78.5 Hyperlipidemia, unspecified; Z86.73 Personal history of transient ischemic attack (TIA), and cerebral infarction without residual deficits; Z87.891 Personal history of nicotine dependence | CPT/HCPCS: 99214 ==

== ENCOUNTER → 2024-02-02 11:16 | Outpatient (BNVA) | payer OTHER, SELFPAY | PROVIDERS: PCP Family Medicine Adult Medicine; Visit Provider Dermatology | DX: D03.4 Melanoma in situ of scalp and neck (principal); D48.5 Neoplasm of uncertain behavior of skin | CPT/HCPCS: 11102; 99212 ==

== ENCOUNTER → 2024-04-18 07:47 | Outpatient (BNVA) | payer OTHER, SELFPAY | PROVIDERS: PCP Family Medicine Adult Medicine; Visit Provider Nurse Practitioner Family | DX: D18.01 Hemangioma of skin and subcutaneous tissue (principal); L73.8 Other specified follicular disorders; L82.1 Other seborrheic keratosis; Z08 Encounter for follow-up examination after completed treatment for malignant neoplasm; Z86.006 Personal history of melanoma in-situ; L91.8 Other hypertrophic disorders of the skin; R20.8 Other disturbances of skin sensation | CPT/HCPCS: 17110; 99213 ==

== ENCOUNTER 2024-05-09 20:00 | Outpatient (CLI) | payer OTHER, SELFPAY | END 2024-05-09 20:01 | disposition home or self-care (01) | LOC: SLEEP 23:04 | PROVIDERS: PCP Family Medicine Adult Medicine; Visit Provider Nurse Practitioner Family | DX: G47.33 Obstructive sleep apnea (adult) (pediatric) (principal) | CPT/HCPCS: 95811 ==

== ENCOUNTER → 2024-06-20 09:56 | Outpatient (BNVA) | payer OTHER, SELFPAY | PROVIDERS: PCP Family Medicine Adult Medicine; Visit Provider Nurse Practitioner Family | DX: L73.8 Other specified follicular disorders (principal); D22.5 Melanocytic nevi of trunk; Q82.5 Congenital non-neoplastic nevus; L82.1 Other seborrheic keratosis; Z86.006 Personal history of melanoma in-situ; L57.8 Other skin changes due to chronic exposure to nonionizing radiation; X32.XXXA Exposure to sunlight, initial encounter; Z08 Encounter for follow-up examination after completed treatment for malignant neoplasm | CPT/HCPCS: 99213 ==

== ENCOUNTER → 2024-06-30 09:42 | Outpatient (BNVA) | payer OTHER, SELFPAY | PROVIDERS: PCP Family Medicine Adult Medicine; Visit Provider Nurse Practitioner Family | DX: D18.01 Hemangioma of skin and subcutaneous tissue (principal); L73.8 Other specified follicular disorders; L57.8 Other skin changes due to chronic exposure to nonionizing radiation; X32.XXXA Exposure to sunlight, initial encounter; L81.4 Other melanin hyperpigmentation; L82.1 Other seborrheic keratosis; Z08 Encounter for follow-up examination after completed treatment for malignant neoplasm; Z86.006 Personal history of melanoma in-situ | CPT/HCPCS: 99213 ==

== ENCOUNTER → 2024-10-24 13:26 | Outpatient (BNVA) | payer OTHER, SELFPAY | PROVIDERS: PCP Family Medicine Adult Medicine; Visit Provider Internal Medicine | DX: I10 Essential (primary) hypertension (principal); E78.5 Hyperlipidemia, unspecified; E11.9 Type 2 diabetes mellitus without complications; Z79.4 Long term (current) use of insulin; Z87.891 Personal history of nicotine dependence; Z79.82 Long term (current) use of aspirin; Z86.73 Personal history of transient ischemic attack (TIA), and cerebral infarction without residual deficits | CPT/HCPCS: 99213 ==

== ENCOUNTER 2025-01-26 06:33 | Outpatient (CLI) | payer OTHER, SELFPAY ==
--- NOTE | 2025-01-26 06:46 | US_ITS ---
WS: [id number] RIGHT UPPER QUADRANT ULTRASOUND HISTORY: Elevate liver enzymes COMPARISON: None available. Liver: 17.7 cm in length. Normal size liver and echogenicity. No bile duct dilatation or mass. Portal Vein: Normal hepatopetal flow with monophasic waveform. Gallbladder: Normally distended gallbladder. There is a nonshadowing focus in the gallbladder which may be a small polyp or tumefactive sludge. No wall thickening. CBD: 0.4 cm Pancreas: Normal size and echogenicity. Right kidney: 12.0 cm in length. Normal size and echogenicity. No hydronephrosis or mass. Aorta and IVC: Unremarkable abdominal aorta and IVC. No ascites. US/US abdomen limited [id number] IMPRESSION: 1. Small gallbladder polyp or tumefactive sludge within the gallbladder. No sh adowing stones identified. 2. Normal size liver. No intrahepatic mass or ductal dilatation.
== END 2025-01-26 06:34 | disposition home or self-care (01) ==
LOC: RAD 06:34
PROVIDERS: PCP Family Medicine Geriatric Medicine; Visit Provider Family Medicine Geriatric Medicine
DX: R74.01 Elevation of levels of liver transaminase levels (principal); K82.8 Other specified diseases of gallbladder
CPT/HCPCS: 76705